=== PATIENT | male | born 1960 | race Two or more races ===

== ENCOUNTER 2018-03-21 22:46 | Emergency (ER) | payer OTHER ==
[~2018-03-21] VITALS: Ht 170.2 cm; Wt 72.6 kg
[~2018-03-21 22:46] MED LIST: CARVEDILOL3.125 MG ORAL; GABAPENTIN100 MG ORAL
[2018-03-21] MEDS ORDERED: LANTUS SOL100 UNIT/1 SUBQ (22:52)
[2018-03-21] MEDS ORDERED: Morphine Sulfate 4mg/ml Inj (IV/IM USE ONLY) IVP ONE (23:00)
[2018-03-21 23:44] VITALS: BP 182/100
[2018-03-21 23:44] LABS: HEMATOCRIT 23.3 % (42.0-52.0); HEMOGLOBIN 7.7 G/DL (14.2-18.0); MEAN CORPUSCULAR VOLUME 87 FL (80-99); PLATELET COUNT 206 K/UL (150-450); RED BLOOD COUNT 2.67 M/UL (4.70-6.10); RED CELL DISTRIBUTION WIDTH 12.7 % (11.6-14.8); WHITE BLOOD COUNT 7.2 K/UL (4.8-10.8)
[2018-03-21 23:53] LABS: ANION GAP 17 mmol/L (5-15); BLOOD UREA NITROGEN 122 mg/dL (7-18); CALCIUM 7.6 MG/DL (8.5-10.1); CARBON DIOXIDE 16 MMOL/L (21-32); CHLORIDE 103 MMOL/L (98-107); CREATININE 10.7 MG/DL (0.55-1.30); POTASSIUM 4.9 MMOL/L (3.5-5.1); SODIUM 136 MMOL/L (136-145)
[2018-03-21 23:58] LABS: APPEARANCE,URINE CLEAR; BILIRUBIN, URINE NEGATIVE (NEGATIVE); COLOR,URINE PALE YELLOW; GLUCOSE, URINE (UA) 3+ (NEGATIVE); KETONES,URINE NEGATIVE (NEGATIVE); NITRITE,URINE NEGATIVE (NEGATIVE); PH,URINE 5 (4.5-8.0); PROTEIN,URINE 4+ (NEGATIVE); UROBILINOGEN,URINE NORMAL MG/DL (0.0-1.0)
[2018-03-22 00:08] LABS: LEUKOCYTE ESTERASE ,URINE 1+ (NEGATIVE)
[2018-03-22] MEDS ORDERED: Sodium Chloride 500ML 500 ML IV ONE (00:15)
[2018-03-22] MEDS ORDERED: cefTRIAXone 1 GM in NS 55 ML IVPB ONE (00:15)
[2018-03-22 00:23] VITALS: BP 133/58
--- NOTE | 2018-03-22 00:46 | Emergency Room Report ---
History of Present Illness General Chief Complaint: Flu Like Symptoms Source: Patient Present Illness HPI Is a 58-year-old male with history of hypertension and diabetes. He presents with chief complaint of body pain and cough. His been ongoing for last 2 weeks. He saw his doctor week ago. Denies any kidney issue. Pain is generalized. 8 out of 10. Also with pain in his chest and back. Complaining of increasing weakness. Cough is nonproductive in nature. Worse with exertion. Worse with lying flat. No nausea no vomiting. Allergies: Coded Allergies: No Known Allergies (Unverified , 04/04/17) Patient History Past Medical History: see triage record, old chart reviewed, DM, HTN Past Surgical History: other Pertinent Family History: none Social History: Denies: smoking Immunizations: other Reviewed Nursing Documentation: PMH: Agreed; PSxH: Agreed Nursing Documentation-PMH Hx Hypertension: Yes Hx Diabetes: Yes Review of Systems Constitutional: Reports: weakness Eye: Denies: eye pain, blurred vision ENT: Denies: ear pain, nose congestion, throat swelling Respiratory: Denies: cough, shortness of breath Cardiovascular: Reports: chest pain; Denies: palpitations Gastrointestinal: Denies: abdominal pain, diarrhea, nausea, vomiting Musculoskeletal: Reports: back pain, joint pain, muscle pain, muscle stiffness Skin: Denies: rash Neurological: Denies: headache, numbness Endocrine: Denies: increased thirst, increased urine Hematologic/Lymphatic: Denies: easy bruising All Other Systems: negative except mentioned in HPI Physical Exam Vital Signs Date Time Temp Pulse Resp B/P (MAP) Pulse Ox O2 Delivery O2 Flow Rate FiO2 03/21/18 22:46 97.9 67 16 182/100 99 Room Air vitals with high blood pressure Sp02 EP Interpretation: reviewed, normal General Appearance: no apparent distress, alert, thin, Chronically Ill Head: normocephalic, atraumatic Eyes: bilateral eye PERRL, bilateral eye EOMI ENT: hearing grossly normal, normal pharynx Neck: full range of motion, supple, no meningismus Respiratory: chest non-tender, rales - Slight rales at the bases Cardiovascular #1: regular rate, rhythm, no murmur Gastrointestinal: normal bowel sounds, non tender, no mass, no organomegaly, no bruit, non-distended Musculoskeletal: back normal, gait/station normal, normal range of motion, swelling - 1+ pitting edema Neurologic: alert, oriented x3 Psychiatric: mood/affect normal Skin: warm/dry Medical Decision Making Diagnostic Impression: Primary Impression: ARF (acute renal failure) Qualified Codes: N17.9 - Acute kidney failure, unspecified Additional Impressions: Uremia Hypertensive cardiomegaly with heart failure Anemia Qualified Codes: D64.9 - Anemia, unspecified Proteinuria Qualified Codes: R80.9 - Proteinuria, unspecified UTI (urinary tract infection) Qualified Codes: N30.00 - Acute cystitis without hematuria ER Course Patient presents with body pain and cough. The pain is probably secondary to uremia from acute renal failure. He was never told that he knee to be on dialysis or issue with his kidney. His cough is probably secondary to CHF. He does have a urinary tract infection. Antibiotics given. No evidence of ACS, PE , dissection to name a few. Lasix given here. Will admit versus transfer for further workup. I contacted Dr. Contreras who accepted pt for transfer to [facility]. Laboratory Tests Test 03/21/18 23:30 White Blood Count 7.2 K/UL (4.8-10.8) Red Blood Count 2.67 M/UL (4.70-6.10) L Hemoglobin 7.7 G/DL (14.2-18.0) L Hematocrit 23.3 % (42.0-52.0) L Mean Corpuscular Volume 87 FL (80-99) Mean Corpuscular Hemoglobin 28.7 PG (27.0-31.0) Mean Corpuscular Hemoglobin Concent 32.9 G/DL (32.0-36.0) Red Cell Distribution Width 12.7 % (11.6-14.8) Platelet Count 206 K/UL (150-450) Mean Platelet Volume 7.1 FL (6.5-10.1) Neutrophils (%) (Auto) % (45.0-75.0) Lymphocytes (%) (Auto) % (20.0-45.0) Monocytes (%) (Auto) % (1.0-10.0) Eosinophils (%) (Auto) % (0.0-3.0) Basophils (%) (Auto) % (0.0-2.0) Urine Color Pale yellow Urine Appearance Clear Urine pH 5 (4.5-8.0) Urine Specific [place] 1.015 (1.005-1.035) Urine Protein 4+ (NEGATIVE) H Urine Glucose (UA) 3+ (NEGATIVE) H Urine Ketones Negative (NEGATIVE) Urine Blood 3+ (NEGATIVE) H Urine Nitrite Negative (NEGATIVE) Urine Bilirubin Negative (NEGATIVE) Urine Urobilinogen Normal MG/DL (0.0-1.0) Urine Leukocyte Esterase 1+ (NEGATIVE) H Urine RBC 10-15 /HPF (0 - 0) H Urine WBC 10-15 /HPF (0 - 0) H Urine Squamous Epithelial Cells None /LPF (NONE/OCC) Urine Amorphous Sediment Moderate /LPF (NONE) H Urine Bacteria Moderate /HPF (NONE) H Urine Coarse Granular Casts 5-10 /LPF (NONE) H Sodium Level 136 MMOL/L (136-145) Potassium Level 4.9 MMOL/L (3.5-5.1) Chloride Level 103 MMOL/L (98-107) Carbon Dioxide Level 16 MMOL/L (21-32) L Anion Gap 17 mmol/L (5-15) H Blood Urea Nitrogen 122 mg/dL (7-18) H Creatinine 10.7 MG/DL (0.55-1.30) H Estimat Glomerular Filtration Rate 5.0 mL/min (>60) Glucose Level 175 MG/DL (74-106) H Calcium Level 7.6 MG/DL (8.5-10.1) L Troponin I 0.004 ng/mL (0.000-0.056) Pro-B-Type Natriuretic Peptide > 29436 pg/mL (0-125) H Urine Opiates Screen Negative (NEGATIVE) Urine Barbiturates Screen Negative (NEGATIVE) Phencyclidine (PCP) Screen Negative (NEGATIVE) Urine Amphetamines Screen Negative (NEGATIVE) Urine Benzodiazepines Screen Negative (NEGATIVE) Urine Cocaine Screen Negative (NEGATIVE) Urine Marijuana (THC) Screen Negative (NEGATIVE) Serum Alcohol < 3 mg/dL Lab Results Impression labs with renal failure EKG Diagnostic Results Rate: normal Rhythm: NSR ST Segments: no acute changes Rhythm Strip Diag. Results Rhythm Strip Time: 00:46 EP Interpretation: yes Rate: 59 Rhythm: NSR, no PVC's, no ectopy Chest X-Ray Diagnostic Results Chest X-Ray Diagnostic Results : Chest X-Ray Ordered: Yes # of Views/Limited/Complete: 1 View Indication: Shortness of Breath EP Interpretation: Yes Interpretation: no consolidation, no effusion, no pneumothorax, other - Cardiomegaly with vascular congestion Impression: Other - chf Electronically Signed by: Alexander Faust MD Last Vital Signs Date Time Temp Pulse Resp B/P (MAP) Pulse Ox O2 Delivery O2 Flow Rate FiO2 03/22/18 00:23 133/58 03/21/18 23:44 67 16 Room Air 03/21/18 23:44 97.9 99 Status: improved Disposition: XFER SHT-TRM HOSP Condition: Stable Referrals: [facility],REFERRING (PCP) Alexander Faust MD Mar 22, 2018 00:46
[2018-03-22 02:06] VITALS: BP 129/63
[2018-03-22 02:08] VITALS: BP 129/63
--- NOTE | 2018-03-22 11:12 | Diagnostic Imaging Report ---
Indication: Chest pain for one week Technique: One view of the chest Comparison: none Findings: The heart is borderline enlarged. There is a moderate size right-sided pleural effusion. There is bilateral interstitial and airspace edema. Impression: Cardiomegaly, with evidence of congestive heart failure and right-sided pleural effusion
== END 2018-03-22 02:09 | disposition short-term general hospital (02) ==
LOC: EDBD 22:46 → EMR 23:04
DX: N17.9 Acute kidney failure, unspecified (principal); I50.9 Heart failure, unspecified; I51.7 Cardiomegaly; D64.9 Anemia, unspecified; R80.9 Proteinuria, unspecified; N30.00 Acute cystitis without hematuria; E11.9 Type 2 diabetes mellitus without complications; R60.0 Localized edema
CPT/HCPCS: 36415; 71045; 80048; 80307; 80329; 81003; 83880; 84484; 85025; 87086; 93005; 96365; 96375; 99284; J0360; J0696; J1940; J2270; J2405